=== PATIENT | male | born 1965 | race African-American/Black ===

== ENCOUNTER 2018-04-27 08:49 | Inpatient (IN) | payer OTHER ==
[2018-04-27 09:33] VITALS: BMI 25.7
--- NOTE | 2018-04-27 09:53 | HP ---
CIWA Score Nausea/Vomitin Muscle Tremors: 2 Anxiety: 2 Agitation: 2 Paroxysmal Sweats: 1-Minimal Palms Moist Orientation: 0-Oriented Tacttile Disturbances: 1-Very Mild Itch/Numbness Auditory Disturbances: 0-None Visual Disturbances: 1-Very Mild Sensitivity Headache: 2-Mild CIWA-Ar Total Score: 13 - Admission Criteria OASAS Guidelines: Admission for Medically Managed Detox: Requires at least one of the followin. CIWA greater than 12 2. Seizures within the past 24 hours 3. Delirium tremens within the past 24 hours 4. Hallucinations within the past 24 hours 5. Acute intervention needed for co occurring medical disorder 6. Acute intervention needed for co occurring psychiatric disorder 7. Severe withdrawal that cannot be handled at a lower level of care (continued vomiting, continued diarrhea, abnormal vital signs) requiring intravenous medication and/or fluids 8. Patient presents the following: CIWA greater than 12 Admission Criteria Met: Admission criteria met Admission ROS BHS - HPI Chief Complaint: i need help to stop drinking alcohol and cocaine Allergies/Adverse Reactions: Allergies Allergy/AdvReac Type Severity Reaction Status Date / Time No Known Allergies Allergy Verified 04/27/18 10:17 History of Present Illness: this 52 years old male with alcohol dependence and cocaine dependence,seeking detox,withdrawal symptom,last detox 03/14 did not recall facility longest period sobriety 1 year need help to stop drinking alcohol Exam Limitations: No Limitations - Ebola screening Have you traveled outside of the country in the last 21 days: No Have you had contact with anyone from an Ebola affected area: No Have you been sick,other than usual withdrawal symptoms: No Do you have a fever: No - Review of Systems Constitutional: Loss of Appetite, Malaise, Night Sweats, Changes in sleep, Weakness EENT: reports: Nose Congestion Respiratory: reports: No Symptoms reported Cardiac: reports: No Symptoms Reported GI: reports: Nausea, Poor Appetite, Indigestion : reports: No Symptoms Reported Musculoskeletal: reports: Back Pain, Muscle Pain Integumentary: reports: Dryness Neuro: reports: Headache, Tremors Endocrine: reports: No Symptoms Reported Hematology: reports: No Symptoms Reported Psychiatric: reports: No Sypmtoms Reported, Judgement Intact, Mood/Affect Appropiate, Orientated x3 Patient History - Patient Medical History Hx Anemia: No Hx Asthma: No Hx Chronic Obstructive Pulmonary Disease (COPD): No Hx Cancer: No Hx Cardiac Disorders: No Hx Congestive Heart Failure: No Hx Hypertension: No Hx Hypercholesterolemia: No Hx Pacemaker: No HX Cerebrovascular Accident: No Hx Seizures: No Hx Dementia: No Hx Diabetes: No Hx Gastrointestinal Disorders: No Hx Liver Disease: No Hx Genitourinary Disorders: No Hx Sexually Transmitted Disorders: No Hx Renal Disease (ESRD): No Hx Thyroid Disease: No Hx Human Immunodeficiency Virus (HIV): No (hiv negative in 2018) Hx Hepatitis C: No Hx Depression: No Hx Suicide Attempt: No Hx Bipolar Disorder: No Hx Schizophrenia: No Other Medical History: no suicidal,no homicidal - Patient Surgical History Past Surgical History: No - PPD History Previous Implant?: Yes Documented Results: Negative w/o proof Implanted On Prior [facility] Admission?: No PPD to be Administered?: Yes - Smoking Cessation Smoking history: Never smoked - Substance & Tx. History Hx Alcohol Use: Yes Hx Substance Use: Yes Substance Use Type: Alcohol, Cocaine Hx Substance Use Treatment: Yes (03/14 unknown facility) - Substances Abused Alcohol Route: Oral Frequency: Daily Amount used: 10 cans of 16 ozs of beer Age of first use: 22 Date of Last Use: 04/26/18 Cocaine Route: Smoking Frequency: Daily Amount used: 200$ Age of first use: 22 Date of Last Use: 04/26/18 Family Disease History - Family Disease History Family History: Denies Family Disease History: Other: Father (no contact), Mother (no contact) Admission Physical Exam BHS - Vital Signs Vital Signs: Vital Signs - 24 hr 04/27/18 09:31 Temperature 97.2 F L Pulse Rate 77 Respiratory 20 Rate Blood Pressure 120/74 - Physical General Appearance: Yes: Moderate Distress, Tremorous, Irritable, Sweating, Anxious HEENTM: Yes: Normal ENT Inspection, LYDIA, Pharynx Normal, Tm's normal Respiratory: Yes: Lungs Clear, Normal Breath Sounds, No Respiratory Distress Neck: Yes: Within Normal Limits, Supple, Trachea in good position Breast: Yes: Within Normal Limits Cardiology: Yes: Within Normal Limits, Regular Rhythm, Regular Rate, S1, S2 Abdominal: Yes: Within Normal Limits, Normal Bowel Sounds, Non Tender, Flat, Soft Genitourinary: Yes: Within Normal Limits Back: Yes: Muscle Spasm Musculoskeletal: Yes: Back pain, Muscle Pain Extremities: Yes: Within Normal Limits, Normal Range of Motion, Tremors Neurological: Yes: Within Normal Limits, shot hole shooter II-XII NML intact, Motor Strength 5 /5 Integumentary: Yes: Dry Lymphatic: Yes: Within Normal Limits - Diagnostic (1) Alcohol dependence with withdrawal, unspecified Current Visit: Yes Status: Acute (2) Cocaine dependence Current Visit: Yes Status: Acute Cleared for Admission S - Detox or Rehab [facility] Level of Care: Medically Managed Detox Regimen/Protocol: Valium BHS Breath Alcohol Content Breath Alcohol Content: 0 Urine Drug Screen - Results Drug Screen Negative: No Urine Drug Screen Results: EZIO-Cocaine Inpatient Rehab Admission - Rehab Decision to Admit Inpatient rehab admission?: No
[2018-04-27] MEDS ORDERED: MAGNESIUM CITRATE 300 ML BOTTLE PO PRN (10:03)
[2018-04-27] MEDS ORDERED: LOPERAMIDE HCL 2 MG CAPSULE PO PRN (10:03)
[2018-04-27] MEDS ORDERED: MAG HYDROX/AL HYDROX/SIMETH 30 ML UNIT-DOSE CUP PO PRN (10:03)
[2018-04-27] MEDS ORDERED: MAGNESIUM HYDROX 2400MG/30ML ORAL SUSPENSION 30 ML CUP PO PRN (10:03)
[2018-04-27] MEDS ORDERED: P-EPHED 60MG/TRIPROLIDI 2.5MG TABLET PO PRN (10:03)
[2018-04-27] MEDS ORDERED: diazePAM 5 MG TABLET PO PRN (10:03)
[2018-04-27] MEDS ORDERED: IBUPROFEN 400 MG TABLET (FP) PO PRN (10:03)
[2018-04-27] MEDS ORDERED: MENTHOL/PHENOL 1 EACH UD MM PRN (10:03)
[2018-04-27] MEDS ORDERED: hydrOXYzine PAMOATE 50 MG CAPSULE (FP) PO PRN (10:03)
[2018-04-27] MEDS ORDERED: ACETAMINOPHEN 325 MG TABLET (FP) PO PRN (10:03)
[2018-04-27] MEDS ORDERED: guaiFENesin/D-METHORPHAN HB 10 ML UNIT-DOSE CUPS PO PRN (10:03)
[2018-04-27] MEDS: diazePAM 5 MG TABLET PO SCH ×2 (14:21→23:04)
[2018-04-27 15:33] LABS: URINE APPEARANCE CLEAR; URINE BILIRUBIN NEGATIVE (<2.0 mg/dL); URINE COLOR LTYELLOW; URINE GLUCOSE (UA) NEGATIVE (NEGATIVE); URINE KETONE NEGATIVE (NEGATIVE); URINE LEUK ESTERASE NEGATIVE (NEGATIVE); URINE NITRITE NEGATIVE (NEGATIVE); URINE PROTEIN NEGATIVE (NEGATIVE); URINE UROBILINOGEN NEGATIVE mg/dL (0.2-1.0)
[2018-04-27] MEDS ORDERED: MELATONIN 5 MG TABLETS PO PRN (22:00)
[2018-04-27] MEDS ORDERED: THIAMINE HCL 100 MG TABLET (FP) PO SCH (22:00)
[2018-04-28] MEDS: diazePAM 5 MG TABLET PO SCH (07:25)
--- NOTE | 2018-04-28 09:51 | PN ---
S CIWA - CIWA Score Nausea/Vomitin-No Nausea/No Vomiting Muscle Tremors: 2 Anxiety: 2 Agitation: 3 Paroxysmal Sweats: 2 Orientation: 0-Oriented Tacttile Disturbances: 0-None Auditory Disturbances: 0-None Visual Disturbances: 0-None Headache: 0-None Present CIWA-Ar Total Score: 9 BHS Progress Note (SOAP) Subjective: sweats sleepy i need my doses lowered because it make me feel too tired. im not a hard core alcoholic. Objective: 04/28/18 09:50 Vital Signs Temperature 98.1 F 04/28/18 09:35 Pulse Rate 73 04/28/18 09:35 Respiratory Rate 16 04/28/18 09:35 Blood Pressure 131/75 04/28/18 09:35 O2 Sat by Pulse Oximetry (%) Laboratory Tests 04/27/18 13:40 Urine Color Ltyellow Urine Appearance Clear Urine pH 6.0 Ur Specific [place] 1.014 Urine Protein Negative Urine Glucose (UA) Negative Urine Ketones Negative Urine Blood Negative Urine Nitrite Negative Urine Bilirubin Negative Urine Urobilinogen Negative Ur Leukocyte Esterase Negative rest of labs pending [id number] ambulating no acute distress Assessment: 04/28/18 09:50 mild withdrawal sx Plan: continue detox increase fluids valium doses lowered as per pt request.
[2018-04-28] MEDS ORDERED: PRENATAL VITAMINS W/ FOLIC ACID TABLET (FP) PO SCH (10:00)
[2018-04-28 10:42] LABS: ALK PHOS 82 U/L (45-117); ANION GAP 8 MMOL/L (8-16); BILIRUBIN,TOTAL 1.5 mg/dL (0.2-1); BLOOD UREA NITROGEN 14 mg/dL (7-18); CALCIUM 9.2 mg/dL (8.5-10.1); CHLORIDE 100 mmol/L (98-107); CO2 30 mmol/L (21-32); CREATININE 1.1 mg/dL (0.55-1.3); GLUCOSE,RANDOM 101 mg/dL (74-106); POTASSIUM 4.2 mmol/L (3.5-5.1); SGOT/AST 38 U/L (15-37); SGPT/ALT 32 U/L (13-61); SODIUM 137 mmol/L (136-145); TOT PROT 7.3 g/dl (6.4-8.2)
[2018-04-28 11:37] LABS: HEMATOCRIT 42.4 % (35.4-49); HEMOGLOBIN 14.4 GM/dL (11.7-16.9); MCH 29.8 pg (25.7-33.7); MCHC 33.9 g/dl (32.0-35.9); MEAN CELL VOLUME 87.9 fl (80-96); RBC 4.83 M/mm3 (4.00-5.60); RDW 13.2 % (11.9-15.9); WHITE BLOOD COUNT 4.8 K/mm3 (4.0-10.0)
[2018-04-28] MEDS ORDERED: AMMONIUM LACTATE 12% LOTION 225 GM BOTTLE TP PRN (11:47)
--- NOTE | 2018-04-28 11:47 | PN ---
[facility] Progress Note Note: pts' counselor stated that he was exposed to scabies, when pt was asked pt denied and states it was a misunderstanding. pt states he did have it and it was on his chest and back. there are times that he feels itchy but no longer is exposed. Pt , com writer and his nurse had pt show us his chest and back but there are no signs of any active scabies, no rash, no scratches from him scratching. pt does have dry skin and lotion as been ordered.
[2018-04-28 12:50] LABS: MEAN PLT VOLUME 10.6 fl (7.5-11.1); PLATELET COUNT 215 K/MM3 (134-434)
[2018-04-28 13:43] VITALS: BP 159/88; PULSE 78; TEMP 98
--- NOTE | 2018-04-28 14:01 | EKG ---
Test Reason : Blood Pressure : / mmHG Vent. Rate : 076 BPM Atrial Rate : 076 BPM P-R Int : 134 ms QRS Dur : 070 ms QT Int : 394 ms P-R-T Axes : 071 084 084 degrees QTc Int : 443 ms NORMAL SINUS RHYTHM T WAVE ABNORMALITY, CONSIDER LATERAL ISCHEMIA ABNORMAL ECG NO PREVIOUS ECGS AVAILABLE Confirmed by MD Flakito, Richard ([id number]) on 04/28/2018 2:01:31 PM Referred By: Confirmed By:Richard Fraga MD
[2018-04-28] MEDS ORDERED: diazePAM 5 MG TABLET PO SCH (22:00)
[2018-04-29] MEDS ORDERED: diazePAM 5 MG TABLET PO SCH (10:00)
[2018-04-29] MEDS ORDERED: diazePAM 5 MG TABLET PO ONE (10:00)
[2018-04-30] MEDS ORDERED: diazePAM 5 MG TABLET PO ONE (06:00)
== END 2018-04-28 04:19 | disposition left against medical advice (07) | DRG 770 ==
LOC: YASAS 08:49 → Y6N 10:54
PROVIDERS: ADMIT Surgery; ATTEND Surgery
PROC: HZ2ZZZZ Detoxification Services for Substance Abuse Treatment (ICD-10-PCS; principal; 2018-04-27)
DX: F10.230 Alcohol dependence with withdrawal, uncomplicated (principal); F14.20 Cocaine dependence, uncomplicated; Z59.0 Homelessness
CPT/HCPCS: 36415; 80053; 81003; 85027; 86593; 93005; 93010